=== PATIENT | female | born 1990 | race Caucasian/White ===

== ENCOUNTER → 2021-03-06 10:08 | Outpatient (BNVA) | payer OTHER, SELFPAY | PROVIDERS: Visit Provider Surgery | DX: Z01.812 Encounter for preprocedural laboratory examination (principal); Z20.822 Contact with and (suspected) exposure to COVID-19 | CPT/HCPCS: 87635 ==

== ENCOUNTER 2021-03-12 08:38 | Day surgery (SDC) | payer OTHER, SELFPAY ==
[2021-03-10 14:38] VITALS: BMI 31.1
--- NOTE | 2021-03-12 09:21 | ANES.PREANE2 ---
Pre-Anesthetic Assessment Pre-Anesthetic Assessment: Height/Weight: Height 1.57 m Weight 77.111 kg Preop Diagnosis: diagnostic Proposed Procedure: Operation Date: 03/12/21 10:15 Proposed Procedures p Colonoscopy 59286 k52.9(Not Applicable) - Juanito Coronel MD Was Beta Lorne taken within 24 hours: N/A Was Clonidine taken within 24 hours: N/A Social: Social History: No alcohol and No tobacco Exam: Pre-Anes Outpt Exam: alert, oriented x 3, clear to auscultation bilaterally and regular rate & rhythm Airway: Submandibular: WNL Cervical ROM: WNL MP: 2 Dentition: Full History/ROS: No significant history except as noted Metabolic: Metabolic: Morbid obesity Neuropsych: Neuropsych: Anxiety and Depression Anesthetic Plan: ASA status: 2 Anesthesia: MAC Risk of > 500 ml blood loss (7ml/kg in children): No PFSH Anesthesia PFSH: Medical History (Updated 02/13/21 @ 17:20 by Juanito Coronel MD) Anxiety and depression Panic disorder PTSD (post-traumatic stress disorder) Vitamin D deficiency Surgical History (Updated 02/13/21 @ 17:20 by Juanito Coronel MD) H/O hemorrhoidectomy History of laparoscopic appendectomy Hx of section Social History Smoking and tobacco status: current every day smoker Second hand smoke exposure: Yes Alcohol intake: current Alcohol intake frequency: holidays/special occasions only Female Reproductive History: Date of last menstrual period: 03/07/21 Data Anesthesia Cardiac Studies: No Data to Display
[2021-03-12 09:46] VITALS: BP 120/69; PULSE 63; RESP 18; TEMP 36.3; O2SAT 97
[2021-03-12] MEDS: sodium chloride 0.9% 1,000 ML 30 ML IV (09:51)
[2021-03-12 09:57] LABS: OR HCG Qualitative Urine Negative (Negative)
--- NOTE | 2021-03-12 11:01 | W.PM.OPSUD ---
Surgery/Procedure H&P Update DATE OF PROCEDURE: March 12, 2021 DATE H&P PERFORMED: 02/13/21 H&P UPDATE INFORMATION: I have reviewed H&P completed within last 30 days, I have examined patient prior to procedure and No changes to prior documentation PREOP DIAGNOSIS: diagnostic PLANNED PROCEDURE: Operation Date: 03/12/21 10:15 Proposed Procedures p Colonoscopy 18739 k52.9(Not Applicable) - Juanito Coronel MD
[2021-03-12 11:29] VITALS: BP 111/68; PULSE 73; RESP 16; TEMP 36.7; O2SAT 96
[2021-03-12 11:51] VITALS: BP 111/86; PULSE 71; RESP 18; TEMP 36.3; O2SAT 97
--- NOTE | 2021-03-12 14:50 | ANE.PACU2 ---
Inpatient post-anesthesia follow up: Airway intact: Yes Vital signs: Temperature 97.3 F Pulse Rate 71 Respiratory Rate 18 Blood Pressure 111/86 Pulse Oximetry 97 Oxygen Delivery Me thod Room Air Oxygen Flow Rate Fraction of Inspir ed Oxygen Hydration adequate: Yes Nausea and vomiting: No Pain level: 1 Mental status: Baseline
== END 2021-03-12 11:57 | disposition home or self-care (01) ==
PROVIDERS: Anesthesiology; Visit Provider Surgery
PROC: 0DJD8ZZ Inspection of Lower Intestinal Tract, Via Natural or Artificial Opening Endoscopic (ICD-10-PCS; CPT 45378; principal; 2021-03-12 10:15)
DX: K52.9 Noninfective gastroenteritis and colitis, unspecified (principal); K64.5 Perianal venous thrombosis; R10.13 Epigastric pain; F41.9 Anxiety disorder, unspecified; F32.9 Major depressive disorder, single episode, unspecified; E55.9 Vitamin D deficiency, unspecified; F17.210 Nicotine dependence, cigarettes, uncomplicated; E66.01 Morbid (severe) obesity due to excess calories; Z68.31 Body mass index [BMI] 31.0-31.9, adult
CPT/HCPCS: 45380; 82274; 83630; 84703; 87493; 87506; 88305; 96360; 96361; J2704; J7030

== ENCOUNTER → 2021-07-16 11:28 | Outpatient (BNVA) | payer OTHER, SELFPAY | PROVIDERS: Visit Provider Nurse Practitioner Family | DX: J01.90 Acute sinusitis, unspecified (principal); B96.89 Other specified bacterial agents as the cause of diseases classified elsewhere; Z20.822 Contact with and (suspected) exposure to COVID-19; R10.2 Pelvic and perineal pain | CPT/HCPCS: 81003; 87635 ==